=== PATIENT | male | born 1965 | race Caucasian/White ===

== ENCOUNTER 2016-12-06 22:15 | Emergency (ER) | payer MEDICAID | END 2016-12-06 23:46 | disposition left against medical advice (07) | LOC: D.ER 22:15 | DX: S39.92XA Unspecified injury of lower back, initial encounter (principal); X58.XXXA Exposure to other specified factors, initial encounter; Y93.89 Activity, other specified; Y92.89 Other specified places as the place of occurrence of the external cause ==

== ENCOUNTER 2016-12-07 12:12 | Emergency (ER) | payer MEDICAID | END 2016-12-07 19:20 | disposition left against medical advice (07) | LOC: D.ER 12:12 | DX: M54.5 Low back pain (principal) ==

== ENCOUNTER 2017-01-16 16:56 | Emergency (ER) | payer MEDICAID ==
[2017-01-16 18:51] LABS: BASOPHILS 0.1 % (0-2); EOSINOPHILS 0.7 % (0-7); HEMOGLOBIN 14.2 g/dL (13.5-17.5); IMMATURE GRANULOCYTES 0.3 % (0-5); LYMPHOCYTES 21.3 % (15-50); MCH 31.8 pg (26.0-34.0); MCV 96.2 fL (80.0-100.0); MEAN PLATELET VOLUME 9.3 fL (7.4-10.4); MONOCYTES 9.2 % (2-11); NEUTROPHILS 68.4 % (40-80); PLATELET COUNT 325 10x3/uL (130-400); RBC 4.47 10x6/uL (4.20-6.10); RDW 13.1 % (11.5-14.5); WBC 15.6 10x3/uL (4.8-10.8)
[2017-01-16 19:12] LABS: ALBUMIN 3.5 g/dL (3.4-5.0); ANION GAP 12.5 mmol/L (8-16); BILIRUBIN - TOTAL 0.62 mg/dL (0.2-1.3); CARBON DIOXIDE 25.4 mmol/L (21.0-32.0); CREATININE - SERUM 1.1 mg/dL (0.6-1.3); POTASSIUM - SERUM 3.9 mmol/L (3.5-5.1); PROTEIN - SERUM 6.7 g/dL (6.4-8.2)
== END 2017-01-16 21:32 | disposition home or self-care (01) ==
LOC: D.ER 16:56
PROVIDERS: Physician Assistant
DX: K02.9 Dental caries, unspecified (principal); K08.89 Other specified disorders of teeth and supporting structures; L03.211 Cellulitis of face; J44.9 Chronic obstructive pulmonary disease, unspecified; F17.200 Nicotine dependence, unspecified, uncomplicated

== ENCOUNTER 2017-07-21 09:11 | Emergency (ER) | payer MEDICARE, MEDICAID ==
[2017-07-21 09:57] LABS: BASOPHILS 0.2 % (0-2); EOSINOPHILS 1.1 % (0-7); HEMATOCRIT 43.2 % (42.0-54.0); HEMOGLOBIN 14.4 g/dL (13.5-17.5); IMMATURE GRANULOCYTES 0.5 % (0-5); LYMPHOCYTES 15.4 % (15-50); MCHC 33.3 g/dL (31.0-37.0); MEAN PLATELET VOLUME 9.1 fL (7.4-10.4); MONOCYTES 16.4 % (2-11); NEUTROPHILS 66.4 % (40-80); RDW 13.2 % (11.5-14.5); WBC 8.1 10x3/uL (4.8-10.8)
[2017-07-21 09:58] LABS: PLATELET COUNT 234 10x3/uL (130-400)
[2017-07-21 10:04] LABS: ANION GAP 12.9 mmol/L (8-16); CALCIUM 8.4 mg/dL (8.5-10.1); CARBON DIOXIDE 24.1 mmol/L (21.0-32.0); CREATININE - SERUM 1.2 mg/dL (0.6-1.3)
== END 2017-07-21 10:50 | disposition home or self-care (01) ==
LOC: D.ER 09:11
PROVIDERS: Emergency Medicine
DX: J20.9 Acute bronchitis, unspecified (principal); R09.1 Pleurisy; F17.200 Nicotine dependence, unspecified, uncomplicated

== ENCOUNTER 2018-03-20 14:59 | Emergency (ER) | payer MEDICARE, MEDICAID ==
[~2018-03-20] VITALS: Ht 172.7 cm; Wt 70.5 kg
[2018-03-20 15:16] VITALS: Ht 172.7 cm; Wt 70.5 kg
[2018-03-20 15:40] LABS: BASOPHILS 0.3 % (0-2); EOSINOPHILS 1.6 % (0-7); HEMOGLOBIN 16.4 g/dL (13.5-17.5); IMMATURE GRANULOCYTES 0.9 % (0-5); LYMPHOCYTES 30.8 % (15-50); MCH 33.1 pg (26.0-34.0); MCHC 34.2 g/dL (31.0-37.0); MCV 96.8 fL (80.0-100.0); MEAN PLATELET VOLUME 9.2 fL (7.4-10.4); MONOCYTES 9.4 % (2-11); RBC 4.96 10x6/uL (4.20-6.10); RDW 12.9 % (11.5-14.5); WBC 12.2 10x3/uL (4.8-10.8)
[2018-03-20 15:53] LABS: PLATELET COUNT 308 10x3/uL (130-400)
[2018-03-20 16:04] LABS: ALBUMIN 3.4 g/dL (3.4-5.0); ALKALINE PHOSPHATASE 73 U/L (46-116); ALT (SGPT) 43 U/L (10-68); BILIRUBIN - TOTAL 0.31 mg/dL (0.2-1.3); CALC OSMOLALITY 271 mosm/kg (275-300); CALCIUM 8.3 mg/dL (8.5-10.1); CARBON DIOXIDE 25.5 mmol/L (21.0-32.0); CHLORIDE - SERUM 105 mmol/L (98-107); CREATININE - SERUM 1.1 mg/dL (0.6-1.3); GLUCOSE 94 mg/dL (74-106); POTASSIUM - SERUM 4.1 mmol/L (3.5-5.1); SODIUM 137 mmol/L (136-145); UREA NITROGEN 6 mg/dL (7-18); eGFR NON AFRICAN AMERICAN 74 mL/min (90-120)
[2018-03-20 16:16] LABS: CKMB 0.3 U/L (0.0-3.6); CREATINE KINASE 46 UL (21-232); PRO BNP 92 pg/mL (0-125); TROPONIN-I < 0.017 ng/mL (0.000-0.060)
[2018-03-20] MEDS ORDERED: PROAIR HFA8.5 GM INH (18:06)
[2018-03-20] MEDS ORDERED: LEVAQUIN750 MG PO (18:06)
[2018-03-20 18:19] VITALS: BP 135/85
== END 2018-03-20 18:20 | disposition home or self-care (01) ==
LOC: D.ER 14:59
PROVIDERS: Family Medicine
DX: J20.9 Acute bronchitis, unspecified (principal); J44.9 Chronic obstructive pulmonary disease, unspecified; R09.89 Other specified symptoms and signs involving the circulatory and respiratory systems; F41.9 Anxiety disorder, unspecified; F17.200 Nicotine dependence, unspecified, uncomplicated

== ENCOUNTER 2018-05-12 18:45 | Emergency (ER) | payer MEDICARE, MEDICAID ==
[~2018-05-12] VITALS: Ht 172.7 cm; Wt 77.1 kg
[~2018-05-12 18:45] MED LIST: LEVAQUIN750 MG PO; PROAIR HFA8.5 GM INH
[2018-05-12 19:19] VITALS: Ht 172.7 cm; Wt 77.1 kg
[2018-05-12 19:48] LABS: BASOPHILS 0.3 % (0-2); EOSINOPHILS 1.8 % (0-7); HEMATOCRIT 41.7 % (42.0-54.0); IMMATURE GRANULOCYTES 0.4 % (0-5); LYMPHOCYTES 39.9 % (15-50); MCH 32.5 pg (26.0-34.0); MCHC 33.6 g/dL (31.0-37.0); MCV 96.8 fL (80.0-100.0); MEAN PLATELET VOLUME 9.2 fL (7.4-10.4); MONOCYTES 9.2 % (2-11); NEUTROPHILS 48.4 % (40-80); PLATELET COUNT 304 10x3/uL (130-400); RBC 4.31 10x6/uL (4.20-6.10); RDW 12.5 % (11.5-14.5)
[2018-05-12 20:08] LABS: ALBUMIN 3.9 g/dL (3.4-5.0); ALKALINE PHOSPHATASE 66 U/L (46-116); ALT (SGPT) 40 U/L (10-68); BILIRUBIN - TOTAL 0.68 mg/dL (0.2-1.3); CALC OSMOLALITY 277 mosm/kg (275-300); CALCIUM 9.1 mg/dL (8.5-10.1); CARBON DIOXIDE 26.7 mmol/L (21.0-32.0); CHLORIDE - SERUM 105 mmol/L (98-107); CREATININE - SERUM 0.9 mg/dL (0.6-1.3); GLUCOSE 93 mg/dL (74-106); PROTEIN - SERUM 7.7 g/dL (6.4-8.2); SODIUM 140 mmol/L (136-145); UREA NITROGEN 9 mg/dL (7-18); eGFR NON AFRICAN AMERICAN > 90 mL/min (90-120)
[2018-05-12 20:19] LABS: CKMB 0.5 U/L (0.0-3.6); CREATINE KINASE 60 UL (21-232)
[2018-05-12 20:25] LABS: TROPONIN-I < 0.017 ng/mL (0.000-0.060)
[2018-05-12] MEDS ORDERED: AUGMENTIN 875-11 TAB PO (22:14)
[2018-05-12 22:33] VITALS: BP 118/79
== END 2018-05-12 22:35 | disposition home or self-care (01) ==
LOC: D.ER 18:45
PROVIDERS: Family Medicine
DX: J40 Bronchitis, not specified as acute or chronic (principal); R93.89 Abnormal findings on diagnostic imaging of other specified body structures; J44.9 Chronic obstructive pulmonary disease, unspecified; F17.200 Nicotine dependence, unspecified, uncomplicated

== ENCOUNTER 2018-06-03 15:20 | Emergency (ER) | payer MEDICARE, MEDICAID ==
[~2018-06-03] VITALS: Ht 172.7 cm; Wt 75.0 kg
[~2018-06-03 15:20] MED LIST changes: +AUGMENTIN 875-11 TAB PO
[2018-06-03 15:28] VITALS: Ht 172.7 cm; Wt 75.0 kg
[2018-06-03 16:13] LABS: BASOPHILS 0.1 % (0-2); EOSINOPHILS 0.7 % (0-7); HEMATOCRIT 47.2 % (42.0-54.0); HEMOGLOBIN 15.4 g/dL (13.5-17.5); IMMATURE GRANULOCYTES 0.7 % (0-5); LYMPHOCYTES 20.4 % (15-50); MCH 32.7 pg (26.0-34.0); MCHC 32.6 g/dL (31.0-37.0); MCV 100.2 fL (80.0-100.0); MEAN PLATELET VOLUME 9.6 fL (7.4-10.4); MONOCYTES 6.1 % (2-11); PLATELET COUNT 327 10x3/uL (130-400); RBC 4.71 10x6/uL (4.20-6.10); RDW 13.8 % (11.5-14.5); WBC 11.2 10x3/uL (4.8-10.8)
[2018-06-03 16:33] LABS: ALBUMIN 3.8 g/dL (3.4-5.0); ALKALINE PHOSPHATASE 71 U/L (46-116); ALT (SGPT) 31 U/L (10-68); BILIRUBIN - TOTAL 1.04 mg/dL (0.2-1.3); CALC OSMOLALITY 272 mosm/kg (275-300); CALCIUM 9.4 mg/dL (8.5-10.1); CARBON DIOXIDE 30.9 mmol/L (21.0-32.0); CHLORIDE - SERUM 100 mmol/L (98-107); CREATININE - SERUM 0.9 mg/dL (0.6-1.3); GLUCOSE 106 mg/dL (74-106); LIPASE 98 U/L (73-393); POTASSIUM - SERUM 4.5 mmol/L (3.5-5.1); PROTEIN - SERUM 7.7 g/dL (6.4-8.2); SODIUM 137 mmol/L (136-145); UREA NITROGEN 10 mg/dL (7-18); eGFR NON AFRICAN AMERICAN > 90 mL/min (90-120)
[2018-06-03] MEDS ORDERED: PHENERGAN25 M1 PO (18:24)
[2018-06-03 18:45] VITALS: BP 125/81
== END 2018-06-03 18:51 | disposition home or self-care (01) ==
LOC: D.ER 15:20
PROVIDERS: Emergency Medicine
DX: R11.2 Nausea with vomiting, unspecified (principal); K52.9 Noninfective gastroenteritis and colitis, unspecified; R05 Cough; J44.9 Chronic obstructive pulmonary disease, unspecified

== ENCOUNTER 2019-06-05 10:51 | Emergency (ER) | payer MEDICARE ==
[~2019-06-05] VITALS: Ht 172.7 cm; Wt 75.0 kg
[~2019-06-05 10:51] MED LIST changes: +PHENERGAN25 M1 PO
[2019-06-05 10:57] VITALS: Ht 172.7 cm; Wt 75.0 kg
[2019-06-05] MEDS ORDERED: ULTRAM50 MG PO (12:51)
[2019-06-05] MEDS ORDERED: CLEOCIN HCL300 MG PO (12:51)
[2019-06-05 13:18] VITALS: BP 125/81
[2019-06-06] MEDS ORDERED: HYDROCODON-ACE1 EAC7 PO (02:38)
== END 2019-06-05 13:15 | disposition home or self-care (01) ==
LOC: D.ER 10:51
DX: K02.9 Dental caries, unspecified (principal); J44.9 Chronic obstructive pulmonary disease, unspecified

== ENCOUNTER 2019-06-06 01:14 | Emergency (ER) | payer MEDICARE ==
[~2019-06-06] VITALS: Ht 172.7 cm; Wt 72.7 kg
[~2019-06-06 01:14] MED LIST changes: +CLEOCIN HCL300 MG PO; +ULTRAM50 MG PO
[2019-06-06 01:17] VITALS: Ht 172.7 cm; Wt 72.7 kg
[2019-06-06 01:50] LABS: BASOPHILS 0.1 % (0-2); EOSINOPHILS 0.5 % (0-7); HEMOGLOBIN 14.8 g/dL (13.5-17.5); IMMATURE GRANULOCYTES 0.5 % (0-5); LYMPHOCYTES 14.2 % (15-50); MCH 31.5 pg (26.0-34.0); MCHC 32.9 g/dL (31.0-37.0); MCV 95.7 fL (80.0-100.0); MEAN PLATELET VOLUME 8.9 fL (7.4-10.4); MONOCYTES 9.6 % (2-11); NEUTROPHILS 75.1 % (40-80); PLATELET COUNT 309 10x3/uL (130-400); RDW 12.9 % (11.5-14.5); WBC 16.7 10x3/uL (4.8-10.8)
[2019-06-06 01:59] LABS: CALC OSMOLALITY 272 mosm/kg (275-300); CALCIUM 8.7 mg/dL (8.5-10.1); CARBON DIOXIDE 25.6 mmol/L (21.0-32.0); CHLORIDE - SERUM 101 mmol/L (98-107); GLUCOSE 144 mg/dL (74-106); POTASSIUM - SERUM 4.2 mmol/L (3.5-5.1); SODIUM 136 mmol/L (136-145); UREA NITROGEN 8 mg/dL (7-18); eGFR NON AFRICAN AMERICAN 82 mL/min (90-120)
[2019-06-06 02:05] LABS: ALBUMIN 3.2 g/dL (3.4-5.0); ALKALINE PHOSPHATASE 81 U/L (46-116); ALT (SGPT) 30 U/L (10-68); BILIRUBIN - TOTAL 0.41 mg/dL (0.2-1.3); PROTEIN - SERUM 7.1 g/dL (6.4-8.2)
[2019-06-06] MEDS ORDERED: HYDROCODON-ACE1 EAC7 PO (02:38)
[2019-06-06 03:25] VITALS: BP 129/78
[2019-06-07] MEDS ORDERED: KEFLEX500 MG PO (11:01)
== END 2019-06-06 03:26 | disposition home or self-care (01) ==
LOC: D.ER 01:14
PROVIDERS: Family Medicine
DX: K04.7 Periapical abscess without sinus (principal); J44.9 Chronic obstructive pulmonary disease, unspecified; Z72.0 Tobacco use

== ENCOUNTER 2019-06-07 10:02 | Emergency (ER) | payer MEDICARE ==
[~2019-06-07] VITALS: Ht 172.7 cm; Wt 72.7 kg
[~2019-06-07 10:02] MED LIST changes: +HYDROCODON-ACE1 EAC7 PO
[2019-06-07 10:07] VITALS: Ht 172.7 cm; Wt 72.7 kg
[2019-06-07] MEDS ORDERED: KEFLEX500 MG PO (11:01)
[2019-06-07 11:19] VITALS: BP 144/90
== END 2019-06-07 11:21 | disposition home or self-care (01) ==
LOC: D.ER 10:02
DX: K02.9 Dental caries, unspecified (principal); R61 Generalized hyperhidrosis; R11.10 Vomiting, unspecified; R42 Dizziness and giddiness

== ENCOUNTER 2020-12-11 14:59 | Emergency (ER) | payer MEDICARE ==
[2019-06-07 10:07] VITALS: BMI 24.3
[~2020-12-11 14:59] MED LIST changes: +KEFLEX500 MG PO
== END 2020-12-11 15:44 | disposition left against medical advice (07) ==
LOC: D.ER 14:59
DX: R20.0 Anesthesia of skin (principal)